=== PATIENT | male | born 1960 | race Caucasian/White ===

== ENCOUNTER 2018-06-20 08:57 | Emergency (ER) | payer MEDICAID, OTHER ==
--- OUTSIDE RECORDS SUMMARY | 2018-06-20 09:04 | XMS REPORT ---
:1960 External Reference #:[id number] Author Organization [facility] Address [address] [place] [address] [place] [address] Phone [phone] Care Team Providers Name Role Phone Cabrera Scott III, MD Primary Care Physician Unavailable Payers Type Date Identification Numbers Payment Provider Subscriber Commercial Effective: Policy Number: Rodriguez Campsteven [employer] 2018 [id number] PayID: [id number] [address] [place] [address] Workers Compensation Onset: 1996 Policy Number: State Insurance Juan Daniel Bolton [id number] [facility] Group Number: [id number] [address] [address] Group Name: fax# [phone] [place] [address] [place]: [id number] Policy Number: [id number] [employer]roverted Juan Daniel [employer] Group Number: [id number] PayID: [id number] Problems Date Description Provider Status Onset: 12/21/2015 Essential hypertension Florin Baker M.D. Active Onset: 12/21/2015 Chronic low back pain Florin Baker M.D. Active Onset: 12/21/2015 Tobacco use Florin Baker M.D. 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 Active Onset: 10/05/2017 Spondylolisthesis L5/S1 level Pedro Pablo Oh M.D. Active Onset: 10/23/2017 Neurogenic claudication Pedro Pablo Oh M.D. Active co-occurrent and due to spinal stenosis of lumbar region Onset: 10/26/2017 Tobacco user Chon Delacruz MD Active Onset: 10/26/2017 Low back pain Chon Delacruz MD Active Onset: 10/26/2017 Lumbosacral spondylosis without Chon Delacruz MD Active myelopathy Onset: 01/06/2018 Major depressive disorder, single Chon Delacruz MD Active episode, unspecified Onset: 01/28/2018 Mixed hyperlipidemia Cabrera Scott M.D. 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 Max 3ppd; began age 13 ETOH Use previous abuse ETOH Use Occasionally consumes alcohol Recreational Drug Use Denies Drug Use Smoking Patient is a current smoker, smokes every day Smoking Light tobacco smoker (10 or fewer cigarettes/day) Exercise Type/Frequency Does not exercise ambulation limited by back pain sx. Able to go up 3 flights stairs slowly with sx of increased back pain, but no SOB or chest discomfort Allergies, Adverse Reactions, Alerts Date Description Reaction Status Severity Comments 12/21/2015 NKDA active 12/21/2015 Shellfish-derived Products Anaphylaxis active 12/21/2015 NKDA inactive Medications Medication Date Status Form Strength Qnty SIG Indications Ordering Provider Bupropion HCL 07/03 Active Tablets 100mg 60tab Take One F32.9 Cabrera E. /2016 s Tablet By Sonia, Mouth Twice A M.D. Day Atorvastatin 01/03 Active Tablets 20mg 30tab Take 1 Tablet E78.5 Cabrera E. s By Mouth AT Sonia, Night M.D. Lisinopril 12/20 Active Tablets 20mg 30tab Take One I10 Cabrera E. s Tablet By Sonia, Mouth Every M.D. Day Omeprazole 12/20 Active Capsules 20mg 30cap Take One Cabrera Khan DR s Capsule By Sonia, Mouth Every M.D. Day Oxycodone-Acetam Active Tablets 1 or 2 Unknown inophen /0000 tablets po evry 4-6 hours prn as directed Baclofen Active Tablets 10mg take 1tab 3 Unknown /0000 times/day as needed for muscle spasm Lyrica Active Capsules 100mg 1 by mouth Unknown /0000 twice a day Morphabond ER Active Tab ER 15mg bid Unknown /0000 12H Abuse-Det Chantix 10/26 Hx Tablets 1mg 60tab 1 by mouth Cabrera Khan s twice a day Ping Soctt M.D. 02/23 Chantix Starting 09/29 Hx Tablets 0.5mg X 1tabs follow F17.210 Cabrera Valdez 11 & 1 mg directions on Sonia - X 42 pack M.DKorin 11/24 Chantix Starting 07/21 Hx Tablets 0.5mg X 1tabs take as Florin 11 & 1 mg directed Samuel - X 42 M.D. 01/11 Gabapentin 07/18 Hx Capsules 100mg 90cap take one M47.812 s capsule by [place], - mouth three M.D. 01/11 times a day /2016 Chantix Starting 07/18 Hx Tablets 0.5mg X 1tabs take as 11 & 1 mg directed [place] - X 42 M.D. 07/18 Cyclobenzaprine 07/15 Hx Tablets 10mg Take One Unknown Tablet By - Mouth Twice A 01/11 Day as Needed For Pain Naproxen DR 07/15 Hx Tablets 500mg Take One DR Tablet By - Mouth Twice A 01/12 Day as Needed For Pain Prednisone 07/15 Hx Tablets 50mg Take One Tablet By - Mouth Once 01/11 Lisinopril Hx Tablets 20mg 1 by mouth Unknown /0000 every day - 12/20 Cyclobenzaprine Hx Tablets 10mg 1 tablet by Unknown HCL /0000 mouth q8 - hours as 03/27 needed spasms Docusate Sodium 00/00 Hx Capsules 100mg 1 tab every Unknown /0000 12 hours as - needed for 05/17 constipation Ahmet Rolling Hx Unknown Walker /0000 - 05/17 Polyethylene 0000 Hx Powder mix 17gm with Unknown Glycol 3350 /0000 6 ounces of - fluids once 05/17 Senna-Lax 00 Hx Tablets 8.6mg take 2 Unknown /0000 tablets by - mouth nightly 05/17 Immunizations CPT Code Status Date Vaccine Lot # [id number] Given 05/18/2018 Pneumonia Vaccine [id number] Given 05/18/2018 Tdap - Tetanus/Diptheria/Acellular Pertussis [id number] Vital Signs Date Vital Result Comment 06/01/2018 Height 66 inches 5'6" Weight 186.00 lb BP Systolic Sitting 150 mmHg BP Diastolic Sitting 80 mmHg Pain Level 1 BMI (Body Mass Index) 30.0 kg/m2 05/18/2018 Height 66 inches 5'6" Weight 186.00 lb Heart Rate 67 /min BP Systolic Sitting 140 mmHg BP Diastolic Sitting 80 mmHg O2 % BldC Oximetry 96 % BMI (Body Mass Index) 30.0 kg/m2 04/19/2018 Height 66 inches 5'6" Weight 189.00 lb Heart Rate 74 /min BP Systolic Sitting 134 mmHg BP Diastolic Sitting 86 mmHg Respiratory Rate 16 /min Pain Level 3 BMI (Body Mass Index) 30.5 kg/m2 03/10/2018 Height 66 inches 5'6" Weight 195.00 lb BP Systolic Sitting 158 mmHg BP Diastolic Sitting 88 mmHg Pain Level 4 BMI (Body Mass Index) 31.5 kg/m2 02/23/2018 Height 66 inches 5'6" Weight 195.00 lb BP Systolic Sitting 140 mmHg BP Diastolic Sitting 80 mmHg Pain Level 3 BMI (Body Mass Index) 31.5 kg/m2 01/28/2018 Height 66 inches 5'6" Weight 195.00 lb Heart Rate 80 /min BP Systolic Sitting 140 mmHg BP Diastolic Sitting 68 mmHg Pain Level 6 O2 % BldC Oximetry 94 % BMI (Body Mass Index) 31.5 kg/m2 01/06/2018 Height 66 inches 5'6" Weight 192.00 lb Heart Rate 82 /min BP Systolic Sitting 130 mmHg BP Diastolic Sitting 78 mmHg Pain Level 8 BMI (Body Mass Index) 31.0 kg/m2 11/24/2017 Height 66 inches 5'6" Weight 192.00 lb Heart Rate 91 /min BP Systolic Sitting 130 mmHg BP Diastolic Sitting 84 mmHg Pain Level 6 BMI (Body Mass Index) 31.0 kg/m2 10/26/2017 Height 66 inches 5'6" Weight 192.00 lb Heart Rate 78 /min BP Systolic Sitting 144 mmHg BP Diastolic Sitting 82 mmHg Pain Level 8 BMI (Body Mass Index) 31.0 kg/m2 10/23/2017 Height 66 inches 5'6" Weight 192.00 lb Heart Rate 90 /min BP Systolic Sitting 140 mmHg BP Diastolic Sitting 81 mmHg Pain Level 8 BMI (Body Mass Index) 31.0 kg/m2 10/05/2017 Height 66 inches 5'6" Weight 192.00 lb Heart Rate 86 /min BP Systolic Sitting 140 mmHg BP Diastolic Sitting 81 mmHg Pain Level 7 BMI (Body Mass Index) 31.0 kg/m2 09/29/2017 Weight 196.00 lb Heart Rate 80 /min BP Systolic Sitting 110 mmHg BP Diastolic Sitting 80 mmHg Body Temperature 98.7 F Pain Level 7 lower backRight leg O2 % BldC Oximetry 98 % 08/10/2017 Height 66 inches 5'6" Weight 196.00 lb Heart Rate 65 /min BP Systolic Sitting 148 mmHg BP Diastolic Sitting 82 mmHg Body Temperature 98.2 F O2 % BldC Oximetry 97 % BMI (Body Mass Index) 31.6 kg/m2 07/03/2017 Height 66 inches 5'6" Weight 191.00 lb Heart Rate 72 /min BP Systolic Sitting 140 mmHg BP Diastolic Sitting 72 mmHg Body Temperature 98.1 F O2 % BldC Oximetry 97 % BMI (Body Mass Index) 30.8 kg/m2 01/23/2017 Weight 173.00 lb Heart Rate 88 /min BP Systolic Sitting 132 mmHg BP Diastolic Sitting 80 mmHg Respiratory Rate 15 /min Body Temperature 98.0 F O2 % BldC Oximetry 98 % 01/12/2017 Height 67 inches 5'7" Weight 174.25 lb Heart Rate 74 /min BP Systolic 140 mmHg BP Diastolic 86 mmHg Body Temperature 98.3 F O2 % BldC Oximetry 97 % BMI (Body Mass Index) 27.3 kg/m2 07/18/2016 Weight 164.00 lb Heart Rate 72 /min BP Systolic Sitting 148 mmHg BP Diastolic Sitting 96 mmHg Body Temperature 97.0 F Pain Level 7 lower back O2 % BldC Oximetry 98 % 01/10/2016 Height 66.5 inches 5'6.50" Weight 174.00 lb Heart Rate 78 /min BP Systolic Sitting 122 mmHg BP Diastolic Sitting 80 mmHg Pain Level 3 BMI (Body Mass Index) 27.7 kg/m2 01/04/2016 Weight 172.00 lb Heart Rate 96 /min BP Systolic Sitting 124 mmHg BP Diastolic Sitting 80 mmHg Body Temperature 98.6 F O2 % BldC Oximetry 97 % 12/21/2015 Height 66 inches 5'6" Weight 175.00 lb Heart Rate 82 /min BP Systolic Sitting 180 mmHg BP Diastolic Sitting 95 mmHg Body Temperature 97.9 F Pain Level 4 O2 % BldC Oximetry 98 % BMI (Body Mass Index) 28.2 kg/m2 Results Test Date Test Result H/L Range Note CBC Auto Diff 02/16/2018 White Blood Count 11.5 10^3/uL High 3.5-10.8 Red Blood Count 4.46 10^6/uL 4.0-5.4 Hemoglobin 14.6 g/dL 14.0-18.0 Hematocrit 42 % 42-52 Mean Corpuscular Volume 94 fL 80-94 Mean Corpuscular Hemoglobin 33 pg High 27-31 Mean Corpuscular HGB Conc 35 g/dL 31-36 Red Cell Distribution Width 14 % 10.5-15 Platelet Count 329 10^3/uL 150-450 Mean Platelet Volume 7.9 um3 7.4-10.4 Abs Neutrophils 7.0 10^3/uL 1.5-7.7 Abs Lymphocytes 3.3 10^3/uL 1.0-4.8 Abs Monocytes 0.8 10^3/uL 0-0.8 Abs Eosinophils 0.3 10^3/uL 0-0.6 Abs Basophils 0.1 10^3/uL 0-0.2 Abs Nucleated RBC 0 10^3/uL Granulocyte % 60.7 % 38-83 Lymphocyte % 28.9 % 25-47 Monocyte % 7.3 % High 0-7 Eosinophil % 2.4 % 0-6 Basophil % 0.7 % 0-2 Nucleated Red Blood Cells % 0 Laboratory test finding 02/16/2018 Partial Thrombo Time 35.1 seconds 26.0 -36.3 PTT Inr/Protime 02/16/2018 Inr 0.88 0.77-1.02 Basic Metabolic Panel 02/16/2018 Sodium 138 mmol/L Low 139-145 Potassium 4.6 mmol/L 3.5-5.0 Chloride 104 mmol/L 101-111 Co2 Carbon Dioxide 25 mmol/L 22-32 Anion Gap 9 mmol/L 2-11 Glucose 91 mg/dL 70-100 Blood Urea Nitrogen 9 mg/dL 6-24 Creatinine 0.63 mg/dL Low 0.67-1.17 BUN/Creatinine Ratio 14.3 8-20 Calcium 9.8 mg/dL 8.6-10.3 Egfr Non- 131.3 >60 Egfr 168.8 >60 1 Urine Culture And Sensitivities 02/16/2018 Urine Culture SEE RESULT BELOW 2 Urinalysis Profile 02/16/2018 Urine Color Yellow Urine Appearance Clear Urine Specific [place] 1.006 Low 1.010-1.030 Urine pH 5.0 5-9 Urine Urobilinogen Negative Negative Urine Ketones Negative Negative Urine Protein Negative Negative Urine Leukocytes Negative Negative Urine Blood 1+ Negative Urine Nitrite Negative Negative Urine Bilirubin Negative Negative Urine Glucose Negative Negative Urine White Blood Cell Absent Absent Urine Red Blood Cell Trace(0-2/hpf) Absent Urine Bacteria Absent Absent Type & Screen 02/16/2018 Patient Blood Type O Positive Antibody Screen NEGATIVE Laboratory test finding 08/06/2017 Hepatitis C Antibody Nonreactive Nonreactive Urinalysis Profile 08/06/2017 Urine Color Yellow Urine Appearance Clear Urine Specific [place] 1.011 1.010-1.030 Urine pH 5.0 5-9 Urine Urobilinogen Negative Negative Urine Ketones Negative Negative Urine Protein Negative Negative Urine Leukocytes Negative Negative Urine Blood Negative Negative Urine Nitrite Negative Negative Urine Bilirubin Negative Negative Urine Glucose Negative Negative Urine Microalbumin Random 08/06/2017 Ur Microalbumin (mg/L) < 15.0 mg/L Urine Creatinine 74.27 mg/dL Urine Microalbumin/Creatinine TNP ug/mg <31 3 Laboratory test finding 08/06/2017 Hemoglobin A1c (Glyco HGB) 5.7 % High 4.0-5.6 4 Lipid Profile 08/06/2017 Triglycerides 268 mg/dL 5 (Trig/Chol/HDL) Cholesterol 185 mg/dL 6 HDL Cholesterol 36.2 mg/dL 7 LDL Cholesterol 95 mg/dL 8 Comp Metabolic Panel 08/06/2017 Sodium 136 mmol/L 133-145 Potassium 4.5 mmol/L 3.5-5.0 Chloride 103 mmol/L 101-111 Co2 Carbon Dioxide 26 mmol/L 22-32 Anion Gap 7 mmol/L 2-11 Glucose 104 mg/dL High 70-100 Blood Urea Nitrogen 11 mg/dL 6-24 Creatinine 0.72 mg/dL 0.67-1.17 BUN/Creatinine Ratio 15.3 8-20 Calcium 10.2 mg/dL 8.6-10.3 Total Protein 7.8 g/dL 6.4-8.9 Albumin 4.7 g/dL 3.2-5.2 Globulin 3.1 g/dL 2-4 Albumin/Globulin Ratio 1.5 1-3 Total Bilirubin 0.60 mg/dL 0.2-1.0 Alkaline Phosphatase 63 U/L 34-104 Alt 40 U/L 7-52 Ast 24 U/L 13-39 Egfr Non- 112.9 >60 Egfr 145.2 >60 9 Basic Metabolic Panel 12/25/2015 Sodium 134 mmol/L 133-145 10 Potassium 4.6 mmol/L 3.5-5.0 10 Chloride 103 mmol/L 101-111 10 Co2 Carbon Dioxide 25 mmol/L 22-32 10 Anion Gap 6 mmol/L 2-11 10 Glucose 108 mg/dL High 70-100 10 Blood Urea Nitrogen 12 mg/dL 6-24 10 Creatinine 0.76 mg/dL 0.67-1.17 10 BUN/Creatinine Ratio 15.8 8-20 10 Calcium 9.6 mg/dL 8.6-10.3 10 Egfr Non- 106.5 >60 10 Egfr 136.9 >60 10, 11 Lipid Profile (Trig/Chol/HDL) 12/25/2015 Triglycerides 207 mg/dL 10, 12 Cholesterol 275 mg/dL 10, 13 HDL Cholesterol 43.8 mg/dL 10, 14 LDL Cholesterol 190 mg/dL 10, 15 Laboratory test finding 12/25/2015 Hemoglobin A1c (Glyco 5.6 % Less than 6.0 10, 16 HGB) 1 Because ethnic data is not always readily available, this report includes an eGFR for both -Americans and non- Americans. The National Kidney Disease Education Program (NKDEP) does not endorse the use of the MDRD equation for patients that are not between the ages of 18 and 70, are , have extremes of body size, muscle mass, or nutritional status, or are non- or non-. According to the National Kidney Foundation, irrespective of diagnosis, the stage of the disease is based on the level of kidney function: Stage Description GFR(mL/min/1.73 m(2)) 1 Kidney damage with normal or decreased GFR 90 2 Kidney damage with mild decrease in GFR 60-89 3 Moderate decrease in GFR 30-59 4 Severe decrease in GFR 15-29 5 Kidney failure <15 (or dialysis) 2 SEE RESULT BELOW Name: JUAN DANIEL BOLTON SR : [address]: Chon Delacruz MD Acct: [id number] Unit: [id number] AGE: 57 Location: [facility] Re02/16/18 SEX: M Status: REG REF SPEC: [id number] ARSLAN: 02/16/18-[address] [facility] [address]: Chon Delacruz MD REQ: [id number] RECD: 02/16/18-1009 STATUS: COMP _ SOURCE: URINE SPDESC: ORDERED: Urine Culture Procedure Result Reported Site Urine Culture Final 02/17/18- 1230 ML No Growth (<1,000 CFU/mL) * ML - Main Lab . END OF REPORT DEPARTMENT OF PATHOLOGY, [address] [place] [address] Shubham Gutierrez M.D. Director [facility] # [id number] 3 Unable to calculate due to low microalbumin 4 Therapeutic target for the treatment of diabetes mellitus patients is <7% HBA1C, and in selective patients <6.0%. Please refer to [place] Diabetes Association diabetic care guidelines for further information. 5 Desirable: <150 Borderline High: 150-199 High: 200-499 Very High: >500 6 Desirable: <200 Borderline High: 200-239 High: >239 7 Low: <40 Desirable: 40-60 High: >60 8 Desirable: <100 Near Optimal: 100-129 Borderline High: 130-159 High: 160-189 Very High: >189 9 Because ethnic data is not always readily available, this report includes an eGFR for both -Americans and non- Americans. The National Kidney Disease Education Program (NKDEP) does not endorse the use of the MDRD equation for patients that are not between the ages of 18 and 70, are , have extremes of body size, muscle mass, or nutritional status, or are non- or non-. According to the National Kidney Foundation, irrespective of diagnosis, the stage of the disease is based on the level of kidney function: Stage Description GFR(mL/min/1.73 m(2)) 1 Kidney damage with normal or decreased GFR 90 2 Kidney damage with mild decrease in GFR 60-89 3 Moderate decrease in GFR 30-59 4 Severe decrease in GFR 15-29 5 Kidney failure <15 (or dialysis) 10 discuss lipids at f/u with me in January 06 Because ethnic data is not always readily available, this report includes an eGFR for both -Americans and non- Americans. The National Kidney Disease Education Program (NKDEP) does not endorse the use of the MDRD equation for patients that are not between the ages of 18 and 70, are , have extremes of body size, muscle mass, or nutritional status, or are non- or non-. According to the National Kidney Foundation, irrespective of diagnosis, the stage of the disease is based on the level of kidney function: Stage Description GFR(mL/min/1.73 m(2)) 1 Kidney damage with normal or decreased GFR 90 2 Kidney damage with mild decrease in GFR 60-89 3 Moderate decrease in GFR 30-59 4 Severe decrease in GFR 15-29 5 Kidney failure <15 (or dialysis) 12 Desirable <150 Borderline high 150-199 High 200-499 Very High >500 13 Desirable <200 Borderline high 200-239 High >239 14 Low <40 Desirable: 40-60 High: >60 15 Desirable: <100 mg/dL Near Optimal: 100-129 mg/dL Borderline High: 130-159 mg/dL High: 160-189 mg/dL Very High: >189 mg/dL 16 Therapeutic target for the treatment of diabetes Mellitus patients is <7% HBA1C, and in selective patients <6.0%.Please refer to [place] Diabetes Association Diabetic care guidelines for further information. Procedures Date CPT Code Description Status 02/26/2018 60688 Stereotactic Computer-Assisted, Spinal Completed 02/26/2018 05776 Application Of Spinal Device Completed 02/26/2018 09869 Post Segmental Instrumentation 3-6 Segments Completed 02/26/2018 51060 Arthrodesis W/M Completed 02/26/2018 45624 Arthrodesis Anterior Interbody Technique W/Diskectomy, Completed Lumbar 02/26/2018 41604 Allograft For Spine Surgery, Morselized Completed 01/28/2018 99760 EKG Tracing & Interpretation Completed Encounters Type Date Location Provider CPT E/M Dx Office Visit 05/18/2018 10:00a [facility] Internal Medicine Cabrera Scott, 25077 I10 - Lanette Ortega I10 Z12.11 F17.210 Z12.11 Z23 F17.210 Z23 Office Visit 01/28/2018 10:20a [facility] Internal Medicine Cabrera Scott, 27699 Z01.810 - Lanette Ortega M43.17 I10 F34.1 E78.2 R73.01 F17.210 Office Visit 11/24/2017 10:00a [facility] [place] [address]229 M43.17 Of [facility] MD Nubia M48.062 F17.210 M47.26 M54.5 Office Visit 10/26/2017 2:00p [facility] [place] 70845 M43.17 Of [facility] MD Nubia M48.062 F17.210 M47.26 M43.17 Office Visit 10/23/2017 9:20a [facility] [place] [address] M43.17 Of Genny Ortega M48.062 Office Visit 10/05/2017 9:30a [facility] [place] [address] M43.17 Of Genny Ortega M43.17 Office Visit 09/29/2017 1:00p [facility] Internal Medicine Cabrera Scott, 87221 F17.210 - Lanette Ortega M54.5 Office Visit 08/10/2017 10:00a [facility] Internal Medicine Cabrera Scott, 89112 F32.9 - Lanette Ortega I10 Office Visit 07/03/2017 9:20a [facility] Internal Medicine Cabrera Scott, 10482 F32.9 - Lanette Ortega I10 E78.00 R73.01 Z11.59 F32.9 I10 E78.00 R73.01 Z11.59 Office Visit 01/23/2017 11:40a [facility] Internal Medicine - Cabrera Scott, 71038 M54.5 Lanette Ortega Office Visit 01/12/2017 9:20a [facility] Internal Medicine - Cabrera Scott, 39648 M54.5 Lanette Ortega Office Visit 07/18/2016 2:00p [facility] Internal Medicine Florin Baker, 12732 M47.812 Lanette Ortega Office Visit 01/10/2016 10:00a [facility] Services Pedro Pablo Althea, 29985 M43.17 Of Genny Ortega M47.812 Office Visit 01/04/2016 1:40p [facility] Internal Medicine Florin Baker M.D. 84227 M54.5 - Kumar M54.5 I10 Plan of Care Future Appointment(s):11/30/2018 9:00 am - Chon Delacruz MD at [facility]11/18/2018 10:20 am - Cabrera Scott M.D. at [facility] Internal [facility] Lanette
[2018-06-20 09:08] VITALS: BP 157/73
--- NOTE | 2018-06-20 09:29 | UC ---
General HPI - HPI Summary HPI Summary: Patient presents with a past medical history of cervical and lumbar radiculopathy. He had recent lumbar surgery with Yosi Hernandez and is scheduled to see him for follow up in June,. He presents to day with complaints of right arm and hand pain, he describes it as a burning sensation that began 1- 2 days ago. He states he had cervical spine surgery by Tereza Upton about 15 years ago, and has not had any problems until now. He denies any cervical pain, injury or any new activity that might explain his pain. He denies any fever, chills, midline cervical tenderness, or weakness of the right extremity. - History of Current Complaint Chief Complaint: UCUpperExtremity Stated Complaint: L HAND COMPLAINT Time Seen by Provider: 06/20/18 09:01 Hx Obtained From: Patient Onset/Duration: Gradual Onset, Lasting Days Timing: Constant Current Severity: Moderate Pain Intensity: 5 - Allergy/Home Medications Allergies/Adverse Reactions: Allergies Allergy/AdvReac Type Severity Reaction Status Date / Time shellfish derived Allergy Intermediate Swelling Verified 06/20/18 09:08 PMH/Surg Hx/FS Hx/Imm Hx Previously Healthy: Yes Endocrine History: Hyperthyroidism - Surgical History Surgical History: Yes Surgery Procedure, Year, and Place: FUSION surgery in [place] with Nubia and vascular surgeon. right rotator cuff surgery. CSP C4-5- PLATE 2002. REPAIR - OF Rt THUMB FROM ACCIDENTAL AMPUTATION. NOSE - SURG REPAIR FROM FX. HEMORROIDECTOMY, back. L4-5, S1 fusion - Family History Known Family History: Positive: Hypertension - Social History Occupation: Employed Full-time Lives: With Family Alcohol Use: Rare Alcohol Amount: 4 Substance Use Type: None Smoking Status (MU): Heavy Every Day Tobacco Smoker Type: Cigarettes Amount Used/How Often: 1/2ppd Length of Time of Smoking/Using Tobacco: since age 13 Have You Smoked in the Last Year: Yes When Did the Patient Quit Smoking/Using Tobacco: February 26, 2018 Household Exposure Type: Cigarettes Review of Systems Constitutional: Negative Skin: Negative Eyes: Negative ENT: Negative Respiratory: Negative Cardiovascular: Negative Gastrointestinal: Negative Genitourinary: Negative Motor: Negative Neurovascular: Negative Musculoskeletal: Arthralgia, Myalgia Neurological: Negative Psychological: Negative Is Patient Immunocompromised?: No All Other Systems Reviewed And Are Negative: Yes Physical Exam Triage Information Reviewed: Yes Appearance: Well-Appearing Vital Signs: Initial Vital Signs Temp 97.6 F 06/20/18 09:02 Pulse 75 06/20/18 09:02 Resp 16 06/20/18 09:02 BP 157/73 06/20/18 09:02 Pulse Ox 100 06/20/18 09:02 Eye Exam: Normal ENT Exam: Normal Neck: Positive: Other: Respiratory Exam: Normal Cardiovascular Exam: Normal Musculoskeletal Exam: Normal Neurological Exam: Normal Skin Exam: Normal Course/Dx - Course Course Of Treatment: Patient presents with a past medical history of cervical and lumbar radiculopathy, with surgical history, cervical spine surgery with Dr. Upton 15 years ago, and recent lumbar surgery with Dr. Delacruz, and now expericing what is most likely cervical radiculopthy. He was neruo-vasc intact with no new motor deficits, with subjective findings of buring pain of finger tips, and dorsal aspect of his thumb. I will do not have CT or MRI available today, and I do not feel this needs to be obtained in an emergent manner, I will treat wiuth medrol dose pack and have asked the pateint to contact Dr. Delacruz Thursday for follow up as soon as possible. He verbalized understanding of and in agreement with the discharge plan. - Differential Dx - Multi-Symptom Differential Diagnoses: Other - cervical radiculopathy Provider Diagnoses: cervical radiculopathy Discharge - Sign-Out/Discharge Documenting (check all that apply): Patient Departure All imaging exams completed and their final reports reviewed: No Studies - Discharge Plan Condition: Stable Disposition: HOME Prescriptions: methylPREDNISolone [Medrol] 4 mg PO .SEE SAILAJA INSTRUCTION #1 tab.ds.pk Patient Education Materials: Cervical Radiculopathy (ED) Referrals: Chon Delacruz MD [Medical Doctor] - Cabrera Scott MD [Primary Care Provider] - Additional Instructions: Call your neurosurgeon on Thursday for follow up as soon as possible. - Billing Disposition and Condition Condition: STABLE Disposition: Home
== END 2018-06-20 09:27 | disposition home or self-care (01) ==
LOC: UCEAST 08:57
DX: M54.12 Radiculopathy, cervical region (principal); Z87.891 Personal history of nicotine dependence
CPT/HCPCS: 99212; G0463

== ENCOUNTER 2018-07-30 12:26 | Emergency (ER) | payer MEDICAID, OTHER ==
[2018-07-30 12:37] VITALS: BP 142/91
--- NOTE | 2018-07-30 12:57 | UC ---
Upper Extremity HPI - HPI Summary HPI Summary: 57 yo M, hx of cervical fusion years ago and lumbar surgery in February 2018 c/o burning pains in bilateral hands, decreased clinic office assistant strength and numbness in fingertips. Symptoms have been progressive for several days. Called his PCP but was unable to get an appointment today so she advised that he come here. 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 He is on multiple pain medications, including lyrica, and sees a pain doctor. Is not requesting pain medications. - History of Current Complaint Chief Complaint: UCUpperExtremity Stated Complaint: NUMBNESS IN FINGERTIPS Time Seen by Provider: 07/30/18 12:46 Hx Obtained From: Patient Pain Intensity: 4 - Allergies/Home Medications Allergies/Adverse Reactions: Allergies Allergy/AdvReac Type Severity Reaction Status Date / Time shellfish derived Allergy Intermediate Swelling Verified 07/30/18 12:38 PMH/Surg Hx/FS Hx/Imm Hx - Surgical History Surgical History: Yes Surgery Procedure, Year, and Place: FUSION surgery in [place] with Nubia and vascular surgeon. right rotator cuff surgery. CSP C4-5- PLATE 2002. REPAIR - OF Rt THUMB FROM ACCIDENTAL AMPUTATION. NOSE - SURG REPAIR FROM FX. HEMORROIDECTOMY, back. L4-5, S1 fusion - Family History Known Family History: Positive: Hypertension - Social History Alcohol Use: Rare Alcohol Amount: 4 Substance Use Type: None Smoking Status (MU): Heavy Every Day Tobacco Smoker Type: Cigarettes Amount Used/How Often: 1/2ppd Length of Time of Smoking/Using Tobacco: since age 13 Have You Smoked in the Last Year: Yes When Did the Patient Quit Smoking/Using Tobacco: February 26, 2018 Household Exposure Type: Cigarettes Review of Systems Constitutional: Negative Skin: Negative Musculoskeletal: Negative Neurological: Weakness, Paresthesia, Numbness All Other Systems Reviewed And Are Negative: Yes Physical Exam Triage Information Reviewed: Yes Appearance: Well-Appearing, No Pain Distress, Well-Nourished Vital Signs: Initial Vital Signs Temp 98 F 07/30/18 12:31 Pulse 71 07/30/18 12:31 Resp 18 07/30/18 12:31 BP 142/91 07/30/18 12:31 Pulse Ox 98 07/30/18 12:31 Vital Signs Reviewed: Yes Neck exam: Normal Neck: Positive: Supple, Nontender Respiratory: Positive: No respiratory distress, No accessory muscle use Neurological: Positive: Alert, Muscle Tone Normal, Other: - decreased clinic office assistant strength bilaterally, L worse than R, decr sensation to light touch throughout Skin Exam: Normal Upper Extremity Course/Dx - Differential Dx/Diagnosis Provider Diagnoses: neuropathic pain, radiculopathy Discharge - Sign-Out/Discharge Documenting (check all that apply): Patient Departure All imaging exams completed and their final reports reviewed: No Studies - Discharge Plan Condition: Stable Disposition: HOME Patient Education Materials: Cervical Radiculopathy (ED) Forms: *Work Release Referrals: Cabrera Scott MD [Primary Care Provider] - - Billing Disposition and Condition Condition: STABLE Disposition: Home
== END 2018-07-30 13:08 | disposition home or self-care (01) ==
LOC: UCEAST 12:26
DX: M79.641 Pain in right hand (principal); M79.642 Pain in left hand; M54.12 Radiculopathy, cervical region; Z89.011 Acquired absence of right thumb; Z91.013 Allergy to seafood; Z87.891 Personal history of nicotine dependence
CPT/HCPCS: 99211; G0463

== ENCOUNTER 2018-09-03 08:30 | Day surgery (SDC) | payer OTHER ==
--- NOTE | 2018-08-23 23:13 | HP ---
PREOPERATIVE HISTORY AND PHYSICAL: DATE OF ADMISSION/SURGERY: 08/31/18 DATE OF OFFICE VISIT/ENCOUNTER: 08/11/18 ATTENDING SURGEON: Sumi Menon MD * (DICTATED BY LELA ANDREWS) PROCEDURE: Left wrist carpal tunnel release. CHIEF COMPLAINT: Numbness and tingling in left hand. HISTORY OF PRESENT ILLNESS: This is a 57-year-old male, who works at [employer]. He is complaining of numbness and tingling in his bilateral hands, much worse on the left than the right. There was no specific injury. He has had trouble on and off for a long time but worse in the past couple of months. It bothers him when he grab things, try to do any pulling, picking up, or holding anything. He says he drops things a lot. He mostly has tingling in his middle finger but also in the index and the ring fingers. He wears a brace on his left wrist that is minimally helpful. He has had neck surgery in the past for numbness in his left arm but this seems different to him. He did have resolution of the left arm numbness after surgery. He sees Dr. Sahu in the pain clinic and is on oxycodone regularly. He has consented to proceed with surgical intervention at this time for left carpal tunnel syndrome. PAST MEDICAL HISTORY: 1. Hypertension. 2. Hyperlipidemia. 3. Anxiety/depression. 4. Chronic back pain. PAST SURGICAL HISTORY: 1. Posterior cervical fusion at C4-C5 in 2002. 2. Right shoulder rotator cuff repair. 3. Right thumb partial amputation. 4. Hemorrhoidectomy. 5. Lumbosacral surgery in 2018. 6. Polypectomy. CURRENT MEDICATIONS: 1. Amlodipine besylate 5 mg daily. 2. Atorvastatin calcium 20 mg daily. 3. Baclofen 10 mg 1 tab 3 times a day p.r.n. muscle spasm. 4. Bupropion HCl 100 mg twice a day. 5. Colyte as directed. 6. Lisinopril 40 mg daily. 7. Lyrica 100 mg twice a day. 8. Omeprazole 20 mg daily. 9. Oxycodone and acetaminophen 1 to 2 tabs q.4 to 6 hours p.r.n. pain. ALLERGIES: No known drug allergies. He does have an allergy to SHELLFISH- DERIVED PRODUCTS. FAMILY MEDICAL HISTORY: Diabetes, hypertension, heart disease. 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 He smokes a pack per day or more than a pack per day for the past 45 years. He says he was up to 3 packs per day but has cut back some. He denies recreational drug use. He does drink alcohol on occasion, approximately 5 drinks per week. REVIEW OF SYSTEMS: Negative for general, cephalic, cardiovascular, respiratory , GI, , other musculoskeletal, integumentary, endocrine, neurologic, and hematologic symptoms. Infectious Disease: Negative for MRSA, hepatitis C, HIV. PHYSICAL EXAMINATION GENERAL: Well-developed, well-nourished, 57-year-old male, in no acute distress. VITAL SIGNS: Height 5 feet 6 inches, weight 187 pounds, blood pressure 160/94. HEENT: Normocephalic, atraumatic. Pupils are equal, round, and reactive to light and accommodation. Extraocular movements are intact. Throat is clear. NECK: Supple. No palpable lymph nodes. PULMONARY: Lungs are clear to auscultation bilaterally. No wheezes, rales, or rhonchi. CARDIOVASCULAR: Regular rate and rhythm. S1, S2. No murmurs, rubs, or gallops. No edema. ABDOMEN: Positive bowel sounds. Soft, nontender. NEUROLOGICAL: Alert and oriented x3. Cranial nerves II through XII are intact. Sensation is intact to light touch. MUSCULOSKELETAL: On exam of his left hand, there is no thenar wasting, but he has weakness and pain resisting thumb abduction. He can make a full fist and fully extend his fingers. He has decreased sensation in the median nerve distribution on the left. Positive Tinel's sign in both median nerves at the wrist. Sensation is intact at the ulnar nerve distribution on both sides. IMPRESSION: Left carpal tunnel syndrome. PLAN: The patient is scheduled to undergo left wrist carpal tunnel release with Dr. Menon on 08/31/18. He will return to the office 10 days postop for followup and suture removal. He has Percocet at home from Dr[facility] that he will plan on using for postoperative pain management if needed. BRENT WAKEFIELD, LELA [id number]/[facility] #: [id number] FANTASMA
[~2018-09-03 08:30] MED LIST: Buffered Lidocaine 0.9% SYRIN* 5 ML/SYR SYRINGE INTRADERM ONE; Famotidine IV* 10 MG/ML 2 ML (20 mg) IV ONE
[2018-09-03] MEDS ORDERED: Lidocaine 1% INJ* 10 MG/ML 30 ML SDV ONE (09:22)
[2018-09-03] MEDS ORDERED: Midazolam* 1 MG/ML 2 ML VIAL (2 MG) ONE (09:40)
[2018-09-03] MEDS ORDERED: fentaNYL* 50 MCG/ML 2 ML VIAL (100 MCG VIAL) ONE (09:40)
[2018-09-03] MEDS ORDERED: Propofol* 10 MG/ML 20 ML BTL ONE (09:43)
[2018-09-03] MEDS ORDERED: Lidocaine 2% PF * 5 ML VIAL ONE (09:43)
[2018-09-03] MEDS ORDERED: Naloxone* 0.4 MG/ML 1 ML VIAL IV PRN (09:45)
[2018-09-03] MEDS ORDERED: Acetaminophen TAB* 325 MG PO PRN (09:45)
[2018-09-03] MEDS ORDERED: Ondansetron INJ* 2 MG/ML VIAL IV PRN (09:45)
[2018-09-03 12:18] VITALS: BP 118/73
--- NOTE | 2018-09-03 13:13 | OP ---
DATE OF OPERATION: 09/03/18 [facility] DATE OF : 60 SURGEON: Sumi Menon MD. OPEN SOURCE DEVELOPER: None. ANESTHESIA: Local MAC. PRE-OP DIAGNOSIS: Left carpal tunnel syndrome. POST-OP DIAGNOSIS: Left carpal tunnel syndrome. OPERATIVE PROCEDURE: Left carpal tunnel release. INDICATIONS FOR PROCEDURE: Crow is a 57-year-old male with numbness and tingling in the median nerve distribution of his left hand and presents for left carpal tunnel release. ESTIMATED BLOOD LOSS: Zero. TOURNIQUET TIME: 6 minutes. DESCRIPTION OF PROCEDURE: The patient was brought to the operating room, was given a sedation anesthetic and a local infiltration of 10 cc of 1% plain lidocaine in the palm of his left hand. The skin of his left hand and forearm was prepped and draped in the usual sterile fashion. The hand and forearm were exsanguinated and the tourniquet elevated to 250 mmHg. A longitudinal incision was made in the palm in line with the ring finger. We dissected through the subcutaneous tissue down to the transverse carpal ligament. The ligament was divided sharply with the knife and then more proximally with the scissors. The nerve was dissected free from the surrounding tissue and there was an area of moderate compression at the mid portion of the ligament. The wound was irrigated and skin edges reapproximated with 4-0 nylon suture. The wound was dressed with Xeroform, 4x4, Webril, and an Catarino wrap. The patient tolerated the procedure well and was brought to the recovery room in good condition. [id number]/[facility] #: [id number] MTDD
== END 2018-09-03 11:15 | disposition home or self-care (01) ==
LOC: OREAST 08:30
PROVIDERS: ATTEND Orthopaedic Surgery
DX: G56.02 Carpal tunnel syndrome, left upper limb (principal); I10 Essential (primary) hypertension; E78.5 Hyperlipidemia, unspecified; F41.8 Other specified anxiety disorders; M54.9 Dorsalgia, unspecified
CPT/HCPCS: J2250; J2704; J3010

== ENCOUNTER 2019-01-25 11:08 | Day surgery (SDC) | payer OTHER ==
--- NOTE | 2019-01-19 11:35 | HP ---
Amended report to enter cosigning physician. PREOPERATIVE HISTORY AND PHYSICAL: DATE OF SURGERY/ADMISSION: 01/25/19 DATE OF OFFICE VISIT/ENCOUNTER: 01/17/19 ATTENDING SURGEON: Sumi Menon MD* (dictated by LELA Delgado). PROCEDURE: Right wrist carpal tunnel release. HISTORY OF PRESENT ILLNESS: This is a 58-year-old male who works at [employer]. He is complaining of numbness and tingling in his right hand that has been ongoing for a long time, but worse over the past couple of months. He denies any injury. It bothers him when he grabs things, tries to do any pulling, picking up, or holding onto things. He says he drops things a lot. He mostly has tingling in the middle and index fingers. He has tried bracing in the past , but it has not been very helpful. He recently underwent a left wrist carpal tunnel release and did quite well with that. He is now interested in pursuing a right wrist carpal tunnel release. He is followed by Dr. Sahu at the pain clinic and is on oxycodone regularly secondary to some neck pain. He has consented to proceed with surgical intervention at this time for a right wrist carpal tunnel release. PAST MEDICAL HISTORY: 1. Hypertension. 2. Hyperlipidemia. 3. Anxiety/depression. 4. Chronic back pain. PAST SURGICAL HISTORY: 1. Left wrist carpal tunnel release. 2. Posterior cervical fusion at C4-C5 in 2002. 3. Right shoulder rotator cuff repair. 4. Right thumb partial amputation. 5. Hemorrhoidectomy. 6. Lumbosacral surgery in 2018. 7. Polypectomy. CURRENT MEDICATIONS: 1. Amlodipine besylate 5 mg daily. 2. Atorvastatin calcium 20 mg daily. 3. Baclofen 10 mg daily. 4. Bupropion HCl 100 mg daily. 5. Lisinopril 40 mg daily. 6. Lyrica 100 mg twice a day. 7. Omeprazole 20 mg daily. 8. Oxycodone and acetaminophen 5/325 one to two tabs q.4 to 6 hours p.r.n. pain. ALLERGIES: No known drug allergies. He does have an allergy to SHELLFISH- DERIVED PRODUCTS. FAMILY MEDICAL HISTORY: Diabetes, hypertension, heart disease. 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 He smokes a pack per day or more than a pack per day and has done so for the past 45 years. He says he was up to 3 packs per day, but has cut back some. He denies recreational drug use. He drinks alcohol on occasion , approximately 5 drinks per week. REVIEW OF SYSTEMS: Negative for general, cephalic, cardiovascular, GI, , other musculoskeletal, integumentary, endocrine, neurologic, and hematologic symptoms. Infectious Disease: Negative for MRSA, hepatitis C, HIV. PHYSICAL EXAMINATION GENERAL: Well-developed, well-nourished 58-year-old male, in no acute distress. VITAL SIGNS: Height 5 feet 7 inches, weight 185 pounds, pulse rate 67, blood pressure 164/82. HEENT: Normocephalic and atraumatic. Pupils are equal, round, and reactive to light and accommodation. Extraocular movements are intact. Throat is clear. NECK: Supple. No palpable lymph nodes. PULMONARY: Lungs are clear to auscultation bilaterally. No wheezes, rales, or rhonchi. CARDIOVASCULAR: Regular rate and rhythm. S1 and S2. No murmurs, rubs, or gallops. No edema. ABDOMEN: Positive bowel sounds. Soft and nontender. NEUROLOGIC: Alert and oriented x3. Cranial nerves II through XII are intact. MUSCULOSKELETAL: On exam of his right hand, there is no thenar wasting, but he has weakness with thumb abduction. He has good strength with finger abduction. He can make a full fist and fully extend his fingers. He has decreased sensation in the median nerve distribution on the right. Positive Tinel's sign at the median nerve. Negative Tinel's at the ulnar nerve and sensation is intact at the ulnar nerve distribution in the right hand. IMPRESSION: Right carpal tunnel syndrome. PLAN/RECOMMENDATIONS: The patient is scheduled to undergo a right wrist carpal tunnel release with Dr. Menon on 01/25/19. He will return to the office 10 days postop for followup and suture removal. He has Percocet at home from Dr. Sahu from [facility] that he will plan on using for postoperative pain as needed. LELA DELGADO [id number]/[facility] #: [id number] FANTASMA
[~2019-01-25 11:08] MED LIST changes: -Buffered Lidocaine 0.9% SYRIN* 5 ML/SYR SYRINGE INTRADERM ONE; +Buffered Lidocaine 1% SYRIN* 1 ML/SYRINGE INTRADERM ONE; +Dexamethasone TAB* 4 MG PO ONE; +DiMENhydriNATE IV* 50 MG/ML VIAL IV PUSH PRN; +Lactated Ringers 1000 ML Bag* 1,000 ML IV SCH; +Naloxone* 0.4 MG/ML 1 ML VIAL IV PRN; +Ondansetron TAB* 4 MG PO ONE; +PROCHLORPERAZINE INJ 5 MG/ML 2 ML VIAL IV PRN; +fentaNYL* 50 MCG/ML 2 ML VIAL (100 MCG VIAL) IV PRN; +oxyCODONE/Acetamin 5/325 MG* TAB PO PRN
[2019-01-25] MEDS ORDERED: Dexamethasone TAB* 4 MG ONE (11:58)
[2019-01-25] MEDS ORDERED: Ondansetron ODT TAB* 4 MG ONE (11:58)
[2019-01-25] MEDS ORDERED: Famotidine IV* 10 MG/ML 2 ML (20 mg) ONE (11:59)
[2019-01-25] MEDS ORDERED: fentaNYL* 50 MCG/ML 2 ML VIAL (100 MCG VIAL) ONE (12:24)
[2019-01-25] MEDS ORDERED: Midazolam* 1 MG/ML 5 ML VIAL (5 MG) ONE (12:24)
[2019-01-25] MEDS ORDERED: KETAMINE HCL* 50 MG/ML 10 ML VIAL ONE (12:24)
[2019-01-25] MEDS ORDERED: Propofol* 10 MG/ML 20 ML BTL ONE (13:15)
[2019-01-25] MEDS ORDERED: Lidocaine 2% PF * 5 ML VIAL ONE (13:15)
[2019-01-25] MEDS ORDERED: Ketorolac INJ* 30 MG/ML 1 ML VIAL ONE (13:15)
[2019-01-25 14:06] VITALS: BP 133/72
--- NOTE | 2019-01-26 22:37 | OP ---
DATE OF OPERATION: 01/25/19 [facility] DATE OF : 60 SURGEON: Sumi Menon MD THREAD DRESSER: LELA Delgado ANESTHESIA: Local MAC. PRE-OP DIAGNOSIS: Right carpal tunnel syndrome. POST-OP DIAGNOSIS: Right carpal tunnel syndrome. OPERATIVE PROCEDURE: Right carpal tunnel release. ESTIMATED BLOOD LOSS: Zero. TOURNIQUET TIME: Approximately 5 minutes. INDICATIONS FOR PROCEDURE: Crow is a 58-year-old man who has numbness and tingling in the median nerve distribution of his right hand. He presents for right carpal tunnel release. DESCRIPTION OF PROCEDURE: The patient was brought to the operating room, was given a sedation anesthetic, and local infiltration of 10 cc of 1% plain lidocaine in the palm of his right hand. Skin of his right hand and forearm was prepped in the usual sterile fashion. The hand and forearm were exsanguinated and the tourniquet elevated to 250 mmHg. A longitudinal incision was made in the palm in line with the ring finger. We dissected through the subcutaneous tissue down to the transverse carpal ligament. The ligament was divided sharply with the knife and then more proximally with the scissors. The nerve was dissected free from the surrounding tissue and there was an area of moderate compression at the midportion of the ligament. The wound was irrigated and the skin edges were reapproximated with 4-0 nylon suture. The wound was dressed with Xeroform, 4x4, Webril, and an Catarino wrap. The patient tolerated the procedure well, was brought to the recovery room in good condition. [id number]/[facility] #: [id number] [facility]
== END 2019-01-25 13:58 | disposition home or self-care (01) ==
LOC: OREAST 11:08
PROVIDERS: ATTEND Orthopaedic Surgery
DX: G56.01 Carpal tunnel syndrome, right upper limb (principal); I10 Essential (primary) hypertension; E78.5 Hyperlipidemia, unspecified; F41.8 Other specified anxiety disorders; M54.9 Dorsalgia, unspecified
CPT/HCPCS: A9270-GY; J1885; J2250; J2704; J3010; J8540